=== PATIENT | female | born 1945 | race Caucasian/White ===

== ENCOUNTER 2019-04-04 11:01 | Emergency (ER) | payer OTHER ==
[~2019-04-04] VITALS: Ht 162.6 cm; Wt 51.7 kg
[2019-04-04] MEDS ORDERED: AMLODIPINE-OLM1 EACH (11:17)
[2019-04-04] MEDS ORDERED: FORTAMET500 MG (11:17)
== END 2019-04-04 19:12 | disposition home or self-care (01) ==
LOC: ER 11:01
DX: K52.89 Other specified noninfective gastroenteritis and colitis (principal); K62.5 Hemorrhage of anus and rectum